=== PATIENT | male | born 1960 | race Caucasian/White ===

== ENCOUNTER 2016-05-03 10:08 | Emergency (ER) | payer BC ==
--- NOTE | 2016-05-03 11:06 | Emergency Department Record ---
History of Present Illness - General Chief complaint: Male Urogenital Problem Stated complaint: ABNORMAL LABS SENT BY DR Hardwick Seen by Provider: 05/03/16 10:58 Source: Patient, RN notes reviewed Mode of Arrival: Ambulatory - History of Present Illness Initial comments: patient had his blood drawn on sunday at [facility]. No symptoms . 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 Stop alcohol 2 years ago. doesn't smoke . Onset/Timin -: Days(s) Reports: Dysuria - Related Data Home Medications Medication Instructions Recorded Confirmed Last Taken Bupropion HCl [Wellbutrin Xl] 150 mg PO DAILY 03/13/15 05/03/16 1 Day Ago Hydroxyzine Pamoate [Vistaril] 25 mg PO QHS 03/13/15 05/03/16 1 Day Ago Furosemide [Lasix] 20 mg PO BID 05/03/16 05/03/16 05/03/16 Metoprolol Tartrate mg PO DAILY 05/03/16 Unknown Pantoprazole Sodium [Protonix] 20 mg PO DAILY 05/03/16 05/03/16 05/03/16 Spironolactone [Aldactone] 25 mg PO DAILY 05/03/16 05/03/16 Unknown Allergies Allergy/AdvReac Type Severity Reaction Status Date / Time No Known Drug Allergies Allergy Verified 05/03/16 10:40 Travel Screening - Travel/Exposure Within Last 30 Days Have you traveled within the last 30 days?: No - Travel/Exposure Within Last Year Have you traveled outside the [place] in the last year?: No - Travel Symptoms Symptom Screening: None Review of Systems Reviewed: No additional complaints except as noted below Constitutional: Reports: As per HPI. Denies: Chills, Fever, Malaise, Night sweats, Weakness, Weight change Eyes: Reports: As per HPI. Denies: Eye discharge, Eye pain, Photophobia, Vision change ENT: Reports: As per HPI. Denies: Congestion, Dental pain, Ear pain, Epistaxis , Hearing loss, Throat pain Respiratory: Reports: As per HPI. Denies: Cough, Dyspnea, Hemoptysis, Stridor, Wheezes Cardiovascular: Reports: As per HPI. Denies: Arrhythmia, Chest pain, Dyspnea on exertion, Edema, Murmurs, Orthopnea, Palpitations, Paroxysmal nocturnal dyspnea, Rheumatic Fever, Syncope Endocrine: Reports: As per HPI. Denies: Fatigue, Heat or cold intolerance, Polydipsia, Polyuria Gastrointestinal: Reports: As per HPI. Denies: Abdominal pain, Constipation, Diarrhea, Hematemesis, Hematochezia, Melena, Nausea, Vomiting Genitourinary: Reports: As per HPI. Denies: Dysuria, Frequency, Hematuria, Incontinence, Retention, Testicular pain, Testicular mass, Urgency Musculoskeletal: Reports: As per HPI. Denies: Arthralgia, Back pain, Gout, Joint swelling, Myalgia, Neck pain Skin: Reports: As per HPI. Denies: Bruising, Change in color, Change in hair/ nails, Lesions, Pruritus, Rash Neurological: Reports: As per HPI. Denies: Abnormal gait, Confusion, Headache, Numbness, Paresthesias, Seizure, Tingling, Tremors, Vertigo, Weakness Psychiatric: Reports: As per HPI. Denies: Anxiety, Auditory hallucinations, Depression, Homicidal thoughts, Suicidal thoughts, Visual hallucinations Hematological/Lymphatic: Reports: As per HPI. Denies: Anemia, Blood Clots, Easy bleeding, Easy bruising, Swollen glands Past Medical History - SOCIAL HISTORY Smoking Status: Never smoker Alcohol Use: None Drug Use: None - RESPIRATORY Hx Respiratory Disorders: Yes Comment:: environmental allergies - CARDIOVASCULAR Hx Cardio Disorders: No Comment:: subclavian clots, thoracic outlet syndrome - NEURO Hx Neuro Disorders: No - GI Hx GI Disorders: Yes Hx Reflux: Yes Hx Rectal Bleeding: Yes - Hx Genitourinary Disorders: No - ENDOCRINE Hx Endocrine Disorders: Yes Hx Diabetes: No Hx Thyroid Disease: Yes (possible) - MUSCULOSKELETAL Hx Musculoskeletal Disorders: Yes Hx Arthritis: Yes (knees) - PSYCH Hx Psych Problems: Yes Hx Anxiety: Yes Hx Depression: Yes - HEMATOLOGY/ONCOLOGY Hx Hematology/Oncology Disorders: Yes Hx Blood Disorders: Yes (clotting) Family Medical History Any Significant Family History?: Yes Hx Heart Disease: Father, Grandparents *Heart Comment: age 50 Hx Stroke: Grandparents Physical Exam - General General Appearance: Alert, Oriented x3, Cooperative, No acute distress - Head Head exam: Normal inspection - Eye Eye exam: Normal appearance, PERRL Pupils: Normal accommodation - ENT ENT exam: Normal exam, Mucous membranes moist, Normal external ear exam, Normal orophraynx, TM's normal bilaterally Ear exam: Normal external inspection. negative: External canal tenderness Nasal Exam: Normal inspection. negative: Discharge, Sinus tenderness Mouth exam: Normal external inspection, Tongue normal Teeth exam: Normal inspection. negative: Dental caries Throat exam: Normal inspection. negative: Tonsillar erythema, Tonsillar exudate - Neck Neck exam: Normal inspection, Full ROM. negative: Tenderness - Respiratory Respiratory exam: Normal lung sounds bilaterally. negative: Respiratory distress - Cardiovascular Cardiovascular Exam: Regular rate, Normal rhythm, Normal heart sounds - GI/Abdominal GI/Abdominal exam: Soft, Normal bowel sounds. negative: Tenderness - Rectal Rectal exam: Deferred - exam: Deferred - Extremities Extremities exam: Normal inspection, Full ROM, Normal capillary refill. negative: Tenderness - Back Back exam: Reports: Normal inspection, Full ROM. Denies: Muscle spasm, Rash noted, Tenderness - Neurological Neurological exam: Alert, Normal gait, Oriented X3, Reflexes normal - Psychiatric Psychiatric exam: Normal affect, Normal mood - Skin Skin exam: Dry, Intact, Normal color, Warm Course Vital Signs 05/03/16 10:31 Pulse Rate 83 Respiratory 16 Rate Blood Pressure 111/79 Pulse Ox 99 Medical Decision Making - Lab Data Result diagrams: 05/03/16 11:48 05/03/16 11:48 Disposition Clinical Impression: Renal insufficiency Anemia Qualifiers: Anemia type: unspecified type Qualified Code(s): D64.9 - Anemia, unspecified Disposition: Home, Self-Care Condition: (1) Good Instructions: Chronic Kidney Disease (ED) Additional Instructions: follow up with Dr. Jara in one week and weigh daily it weigh up 5 pounds in 24 hours follow up sooner with Estefani Louis avoid salt Forms: Patient Portal Access Time of Disposition: 12:28
[2016-05-03 11:51] LABS: BASO % 0.9 % (0-6); EOS % 4.7 % (0-6); GRAN % 59.3 % (47-80); HEMATOCRIT 29.6 % (42.0-52.0); LYMPH % 22.1 % (16-45); MEAN CELL VOLUME 74.2 fl (81-97); MEAN CORPUSCULAR HGB CONC 32.4 g/dl (32-36); MEAN PLATELET VOLUME 10.8 fl (7.4-10.4); PLATELET COUNT 210 K/uL (130-400); RED BLOOD COUNT 3.99 M/uL (4.40-5.70); WHITE BLOOD COUNT W/O DIFF 5.8 K/uL (4.2-12.2)
[2016-05-03 11:59] LABS: HEMOGLOBIN 9.6 gm/dl (14.0-18.0); RED CELL DISTRIBUTION WIDTH 24.4 % (11.5-14.5)
[2016-05-03 12:03] LABS: ANION GAP 18.2 (7-16); CARBON DIOXIDE 20.8 mmol/L (22-30); CREATININE 2.8 mg/dL (0.66-1.25)
== END 2016-05-03 12:45 | disposition home or self-care (01) ==
LOC: ER 10:08
DX: N28.9 Disorder of kidney and ureter, unspecified (principal); D64.9 Anemia, unspecified; K70.30 Alcoholic cirrhosis of liver without ascites; F10.21 Alcohol dependence, in remission
CPT/HCPCS: 80048; 85025; 99283